=== PATIENT | female | born 1975 | race Caucasian/White ===

== ENCOUNTER → 2021-04-10 14:13 | Outpatient (CLI) | payer OTHER, MEDICAID, SELFPAY ==
[2021-04-10 16:28] LABS: Thyroid Stimulating Hormone 1.41 uIU/mL (0.47-4.68)
[2021-04-11 17:23] LABS: Free T4, Direct Thyroxine 1.26 ng/dL (0.78-2.19)
== END ==
PROVIDERS: Referring Provider Obstetrics & Gynecology; Visit Provider Obstetrics & Gynecology
DX: Z13.29 Encounter for screening for other suspected endocrine disorder (principal)
CPT/HCPCS: 36415; 84439; 84443

== ENCOUNTER → 2021-06-10 14:28 | Outpatient (CLI) | payer OTHER, SELFPAY ==
[2021-06-10 16:32] LABS: COVID19 -Nasal RAPID Negative (Negative)
== END ==
PROVIDERS: Visit Provider Obstetrics & Gynecology
DX: Z01.812 Encounter for preprocedural laboratory examination (principal); Z20.822 Contact with and (suspected) exposure to COVID-19
CPT/HCPCS: 87635

== ENCOUNTER 2021-06-11 07:34 | Day surgery (SDC) | payer OTHER, SELFPAY ==
[2021-06-05 08:45] VITALS: BMI 41.0
[2021-06-11 07:55] VITALS: BMI 41.0
--- NOTE | 2021-06-11 07:59 | SUR.OPER ---
Lithotomy on padded OR bed, head on pillow, arms secured on padded arm boards at <90 degrees abduction. Legs secured in padded yellow fins stirrups.
[2021-06-11] MEDS: LACTATED RINGERS 1,000 ML 100 ML IV (08:04)
[2021-06-11] MEDS: SCOPOLAMINE 1 PATCH TOP (08:12)
[2021-06-11 08:16] VITALS: BP 135/85; PULSE 85; RESP 16; TEMP 36.2; O2SAT 100
--- NOTE | 2021-06-11 08:23 | PM.PREOP ---
Pre-operative Note COVID-19 COVID-19 status: Negative Result date/Date tested (Pos, Neg/Pending): 06/10/21 Criteria for continued procedure: Non-surgical alternatives not available or appropriate per current SOC Interval Note History & Physical reviewed/Exam performed by Physician: Yes Changes to H&P: No H&P completed within 30 days and has changed as indicated here:: 06/05/21
--- NOTE | 2021-06-11 09:59 | SUR.OPER ---
LENGTH 5/ WIDTH 3.3
--- NOTE | 2021-06-11 10:04 | PM.GYNOP.1 ---
Operative Date/Time/Diagnoses Date of procedure: 06/11/21 Time of procedure: 10:05 Pre-op diagnosis: Menorrhagia Post-op diagnosis: same Procedure & Clinicians Procedure: Procedures Operation Date: 06/11/21 08:30 Actual Procedure Side Surgeon p D&C Hysteroscopy w/ Novasure Endometrial Ablation Lisa Moe MD Indications: Menorrhagia Surgeon: Lisa Moe Anesthesia Type: General (LMA) Operative Notes Findings: 7 week size anteverted uterus Both fallopian tube ostia observed No polyps or fibroids visible Closure Type: not applicable Specimen(s): none Estimated blood loss (mL): 5 Blood products transfused: none Procedure in detail: The patient was taken to the operating room where she was placed in the dorsal supine position. After adequate LMA general anesthesia was achieved, she was placed in the dorsal lithotomy position, and prepped and draped in the usual sterile fashion. A time-out was performed. A bimanual exam was performed which revealed a 7 week size anteverted uterus. A bivalve speculum was placed into the vagina. The anterior lip of the cervix was grasped with a single-tooth tenaculum. The cervical os was dilated to the # 9 Hegar dilator. The hysteroscope passed easily into the endometrial cavity. Both fallopian tube ostia were observed. There were no polyps or fibroids. The hysteroscope was removed. The Suresound was placed into the endometrial cavity, the cervical rest was deployed, and pulled back against the internal cervical os. The uterine cavity was then measured and was 5 cm. The sure sound was removed. The length of the uterus was set on the NovaSure generator at 5.0cm. A length of 5.0 cm was set on the NovaSure catheter and the catheter passed easily into the endometrial cavity. The catheter was opened and the with of the uterus was 3.3 cm. This was also set on the generator. The cervix was capped, the cavity assessment was performed and passed. The cycle was initiated and lasted 1 minute and 9 seconds. The power was 97 w. At the completion of the cycle the NovaSure catheter was closed, the cervix was uncapped, and the catheter was removed from the uterus. The single-tooth tenaculum was removed from the anterior lip of the cervix. The bivalve speculum was removed from the vagina. Sponge, lap, and instrument counts were correct x2. The patient tolerated the procedure well, and was taken to PACU in stable condition. Complications: none Post-operative Condition: stable Disposition: PACU Plan for aftercare: Home after recovery
[2021-06-11 10:09] VITALS: BP 114/67; PULSE 76; RESP 13; TEMP 36; O2SAT 95
[2021-06-11 10:14] VITALS: BP 119/62; PULSE 68; RESP 14; O2SAT 97
[2021-06-11 10:19] VITALS: BP 119/68; PULSE 75; RESP 13; O2SAT 96
[2021-06-11 10:29] VITALS: BP 119/65; PULSE 68; RESP 14; O2SAT 98
[2021-06-11] MEDS: ACETAMINOPHEN 325 MG TABLET 950 MG PO (10:47)
--- NOTE | 2021-06-11 10:48 | SUR.PHASEII ---
975mg given as unable to remove 25mg.
[2021-06-11 10:50] VITALS: BP 137/76; PULSE 76; RESP 12; O2SAT 98
[2022-10-28 09:58] VITALS: BMI 34.0
== END 2021-06-11 11:05 | disposition home or self-care (01) ==
PROVIDERS: PCP Nurse Practitioner Family; Referring Provider Obstetrics & Gynecology; Visit Provider Obstetrics & Gynecology
PROC: 0U5B8ZZ Destruction of Endometrium, Via Natural or Artificial Opening Endoscopic (ICD-10-PCS; CPT 58563; principal; 2021-06-11 08:30)
DX: N92.0 Excessive and frequent menstruation with regular cycle (principal)
CPT/HCPCS: 58563; J1100; J1885; J2250; J2405; J2704; J3010

== ENCOUNTER → 2022-10-16 17:03 | Outpatient (CLI) | payer OTHER, SELFPAY | PROVIDERS: PCP Nurse Practitioner Family; Visit Provider Obstetrics & Gynecology | DX: R31.9 Hematuria, unspecified (principal) | CPT/HCPCS: 87086 ==

== ENCOUNTER 2022-10-30 07:44 | Day surgery (SDC) | payer OTHER, SELFPAY ==
[2022-10-30] VITALS (7 sets, daily range): BP systolic 111–132; BP diastolic 67–81; PULSE 74–95; RESP 14–17; TEMP 36.2–36.7; O2SAT 95–100; BMI 34.4
--- NOTE | 2022-10-30 | PATH_ITS ---
[facility] Accession Number: [id number] No. of containers..01 Tissue . 01 Material submitted: . uterus - UTERUS AND BILATERAL FALLOPIAN TUBES . 01 Diagnosis: Uterus And Left And Right Fallopian Tubes, Supracervical Hysterectomy And Bilateral Salpingectomy: Endometrium: Secretory. Myometrium: Leiomyomata and adenomyosis. Fallopian tubes: Benign paratubal cysts. [facility] 11/04/20222042 Local . 01 Electronically signed: . Tereza Cunningham MD, Pathologist NPI- [id number] . 01 Gross description: . The specimen is received in formalin labeled with the patient's name, , and uterus and bilateral fallopian tubes, and consists of a fragmented uterus (161 grams and aggregating to 13.2 x 11.7 x 4.1 cm), a fimbriated fallopian tube (3.1 x 1.0 cm), and a nonfimbriated tubular fragment consistent with fallopian tube (3.1 x 0.7 cm), with no additional adnexa. The serosa is alcazar and smooth with no evidence of hemorrhage or adhesion grossly identified. The presumed endometrium is alcazar and velvety and averages less than 0.1 cm thick. The myometrium is alcazar and trabecular with several well-circumscribed white nodules ranging from 0.3 to 0.6 cm in greatest dimension with no additional lesions identified. . The fimbriated fallopian tube has violaceous smooth serosa with multiple cystic structures measuring up to 1.1 cm in greatest dimension filled with clear serous fluid. Sectioning reveals an unremarkable stellate lumen. The nonfimbriated tube has alcazar smooth serosa with no cystic structures identified, and sectioning reveals an unremarkable stellate lumen. . [employer] sections are submitted as follows: A1: Endometrium. A2: Serosa. A3: Nodules. A4: Fimbriated fallopian tube to include one-half of bisected fimbriae and cross-sections. A5: Nonfimbriated fallopian tube cross-sections. ([id number]) /MRV 10/31/2022 1151 Local . 01 Pathologist provided ICD-10: D25.9 . 01 CPT . 409204 Specimen Comment: A courtesy copy of this report has been sent to [phone] Performed at: 01 [facility] [address] [place] [address] [id number] MD Rodrick Hernandez MD Phone: [phone]
[2022-10-30] MEDS: LACTATED RINGERS 1,000 ML 100 ML IV ×2 (08:09→10:59)
--- NOTE | 2022-10-30 09:26 | PM.PREOP ---
Pre-operative Note COVID-19 Criteria for continued procedure: Non-surgical alternatives not available or appropriate per current SOC Interval Note History & Physical reviewed/Exam performed by Physician: Yes Changes to H&P: Yes H&P completed within 30 days and has changed as indicated here:: 10/16/22
[2022-10-30] MEDS: CEFAZOLIN 2 GM/100 ML PREMIX 100 ML IV (09:55)
[2022-10-30] MEDS: BUPIVACAINE 0.5% (PF) 30 ML, EPINEPHrine 0.15 MG INJ (10:58)
[2022-10-30] MEDS: SCOPOLAMINE 1 PATCH TOP (11:00)
--- NOTE | 2022-10-30 11:10 | SUR.OPER ---
Lithotomy on padded OR bed. [place] Pad Positioner under torso. Head on pillow, arms padded and tucked at sides. Legs secured in padded yellow fins stirrups.
[2022-10-30] MEDS: ROPIVACAINE 0.2% PF 2 MG/ML 20ML AMP 20 ML INJ (12:33)
--- NOTE | 2022-10-30 13:37 | PM.GYNOP.1 ---
Operative Date/Time/Diagnoses Date of procedure: 10/30/22 Time of procedure: 13:38 Pre-op diagnosis: Menometrorrhagia Failed endometrial ablation Post-op diagnosis: same Procedure & Clinicians Procedure: Procedures Operation Date: 10/30/22 09:15 Actual Procedure Side Surgeon p Laparoscopic Supracervical Hysterectomy WITH bilateral salpingectomy, EXTENSIVE LYSIS OF ADHESIONS Lisa Moe MD Indications: Menometrorrhagia Failed endometrial ablation Surgeon: Lisa Moe Clinical Investigator: Basia Ravi Anesthesia Type: General and Local Operative Notes Findings: 10 wk size uterus Left round ligament adhesed to anterior abdominal wall Normal ovaries bilaterally Left tube adhesed to left ovary Normal right tube Normal appendix Bladder to uterine adhesions Bilateral filmy adhesions between uterus and adnexa Omental to anterior abdominal wall adhesions Closure Type: primary Specimen(s): left tube, right tube and uterus Applied: catheter (To continuous drainage, removed at the end of the case) Estimated blood loss (mL): 100 Blood products transfused: none Procedure in detail: The patient was taken to the operating room where she was placed in the dorsal supine position. After adequate general endotracheal anesthesia was achieved, she was placed in the dorsal lithotomy position, and prepped and draped in the usual sterile fashion. A timeout was performed. A bivalve speculum was placed into the vagina and the anterior lip of the cervix grasped with a single-tooth tenaculum. The cervical os was sequentially dilated. The ZUMI uterine manipulator passed into the lower uterine segment only. The single-tooth tenaculum was removed from the anterior lip of the cervix, and the bivalve speculum was removed from the vagina. Attention was then turned to the abdomen where 6 mL of half percent Marcaine with epinephrine were injected in the umbilical fold. A 5 mm incision was made. The Verees needle was placed into the peritoneal cavity, and its placement confirmed by aspiration and drop test. The Verees needle was removed. A 5 mm trocar was placed without difficulty. 2 other incisions were made 4 cm lateral to the umbilicus after 5 mL of half percent Marcaine with epinephrine were injected. These were 5 mm incisions. Two 5 mm trocars were placed under direct visualization. The right tube was grasped with an atraumatic grasper. Using the Powerseal, the mesosalpinx was cauterized and cut all the way down to the cornua of the uterus. The cornua of the uterus was then grasped with an atraumatic grasper. Using the endoshears, adhesions between the uterus and adnexa were taken down. The utero-ovarian ligaments were cauterized and cut. The round ligament and broad ligament was cauterized and cut with plasma kinetic. Hemostasis was achieved. The uterine arteries on the right side were extensively cauterized with plasma kinetic. On the left side, the endoshears were used to take down adhesions between the uterus and adnexa. Using the Powerseal, the uterus was taken down from the anterior abdominal wall using cautery and cut. The bladder flap was carefully created using the endoshears and powerseal. The bladder was then bluntly taken down off of the lower uterine segment. Using the L[place]oop, the cervix was amputated from the uterus 2 cm above the uterosacral ligaments, after the ZUMI uterine manipulator was removed from the uterus, and a moistened sponge stick was placed into the vaginal There was a small amount of bleeding noted from the right of the cervix, and this was cauterized for hemostasis. 6 mL of half percent Marcaine with epinephrine were injected above the pubic symphysis. A 12 mm incision was made. A 12 mm trocar was placed into the peritoneal cavity. An Endobag was placed through the suprapubic trocar and the uterus and tubes were placed into the Endobag. The trocar was removed. The fascial incision was extended bilaterally. The bag was brought up through the skin. The uterus was grasped with a ro. The Roverto was placed into the endobag. The uterus was hand morcellated in approximately 20 pieces. The Endobag with the Roverto were removed from the peritoneal cavity. The fascial incision was closed with 0-vicryl in a running fashion. The abdomen was reinsufflated with CO2. The pelvis was copiously irrigated with warm normal saline. No bleeding was noted. 20 cc of 0.2% Bupivicaine were injected into the pelvis over the pedicles. The instruments were removed from the abdomen. The CO2 was allowed to escape. 2 simple interrupted sutures with 3-0 vicryl were placed subcutaineous layer of the suprapubic incision. All of the incisions were closed with 4-0 Biosyn in a subcuticular fashion. Steri strips and Allevyn dressings were placed. The moistened sponge stick was removed from the vagina. Sponge, lap, and instrument counts were correct x-2. The patient tolerated the procedure well, was taken to PACU in stable condition. Complications: none Post-operative Condition: stable Disposition: PACU Plan for aftercare: Home after recovery
[2022-10-30] MEDS: ONDANSETRON 4 MG/2 ML INJ IV (14:31)
--- NOTE | 2022-10-30 14:34 | SUR.PHASEII ---
Patient ambulatory to the bathroom with one-person assist. Voided without difficulty. Zofran given for nausea but no emesis at this time. All discharge instructions reviewed with patient. Home with mother.
== END 2022-10-30 14:35 | disposition home or self-care (01) ==
PROVIDERS: PCP Nurse Practitioner Family; Referring Provider Obstetrics & Gynecology; Visit Provider Obstetrics & Gynecology
PROC: 0UT94ZL Resection of Uterus, Supracervical, Percutaneous Endoscopic Approach (ICD-10-PCS; CPT 58542; principal; 2022-10-30 09:15)
DX: N92.1 Excessive and frequent menstruation with irregular cycle (principal); N73.6 Female pelvic peritoneal adhesions (postinfective); D25.9 Leiomyoma of uterus, unspecified; N80.03 Adenomyosis of the uterus; N83.8 Other noninflammatory disorders of ovary, fallopian tube and broad ligament
CPT/HCPCS: 58542; J0171; J0690; J1100; J1170; J1885; J2250; J2405; J2704; J2795; J3010; J3490